=== PATIENT | male | born 1985 | race African-American/Black ===

== ENCOUNTER 2021-11-28 22:46 | Emergency (ER) | payer MEDICAID, SELFPAY | END 2021-11-29 05:55 | disposition home or self-care (01) | LOC: CSHERS 22:46 | DX: R10.12 Left upper quadrant pain (principal) | CPT/HCPCS: 93005 ==

== ENCOUNTER 2021-12-16 20:13 | Emergency (ER) | payer SELFPAY ==
[2021-12-16 21:43] LABS: SARS-CoV-2 NAA Rapid Test Not Detected (NotDetected)
[2021-12-16] MEDS ORDERED: methylPREDNISolone Sod Succ/PF 125 MG/2 ML VIAL ONE (21:51)
[2021-12-16 21:53] LABS: #Eosinphils 0.2 10x3/uL (0.0-0.5); #Monocytes 0.8 10x3/uL (0.0-1.1); #Neutrophils 8.7 10x3/uL (1.5-8.4); %Basophils 0.3 % (0.0-2.0); %Eosinophils 1.8 % (0.0-6.0); %Lymphocytes 15.1 % (18.0-47.0); %Neutrophils 75.5 % (40.0-75.0); Mean Corpuscular HGB CONC 32.7 g/dL (32.0-36.0); Mean Corpuscular Hemoglobin 29.7 pg (27.0-33.0); Mean Corpuscular Volume 90.9 fl (81.2-95.1); Mean Platelet Volume 9.2 fl (7.4-10.4); Platelet Count 223 10x3/uL (150-450); RBC Distribution Width 11.9 % (11.5-14.5); Red Blood Cell (RBC) Count 4.71 10x6/uL (4.32-5.72); White Blood Cell (WBC) Count 11.5 10x3/uL (3.5-10.5)
[2021-12-16] MEDS ORDERED: Albuterol Sulfate 2.5 mg/3 ml Neb ONE (21:57)
[2021-12-16 22:05] LABS: ALT (SGPT) 20 U/L (8-55); AST (SGOT) 22 U/L (5-34); Albumin 4.6 g/dL (3.5-5.0); Alkaline Phosphatase 55 U/L (40-110); Anion Gap 16 mmol/L (10-20); BUN (Urea Nitrogen) 8 mg/dL (8.9-20.6); Bilirubin, Total 0.6 mg/dL (0.2-1.2); Calc. Creatinine Clearance 0 mL/min (70-130); Calcium 9.1 mg/dL (7.8-10.44); Carbon Dioxide 25 mmol/L (22-29); Chloride 105 mmol/L (98-107); Estimated GFR 98; Globulin 2.9 g/dL (2.4-3.5); Glucose 87 mg/dL (70-105); Potassium 4.3 mmol/L (3.5-5.1); Protein, Total 7.5 g/dL (6.0-8.3); Sodium 142 mmol/L (136-145)
== END 2021-12-16 23:51 | disposition home or self-care (01) ==
LOC: CSHERS 20:13
DX: J20.9 Acute bronchitis, unspecified (principal); Z20.822 Contact with and (suspected) exposure to COVID-19
CPT/HCPCS: 71046; 80053; 83880; 84484; 85025; 85379; 87804; 93005; 94640; 94644; 94760; 96374; J2930; J7611; J7620; U0002